=== PATIENT | female | born 1950 | race Two or more races ===

== ENCOUNTER 2024-11-29 02:54 | Emergency (ER) | payer MEDICARE, BC ==
[~2024-11-29] VITALS: Ht 167.6 cm; Wt 65.8 kg
[2024-11-29] MEDS ORDERED: ASPIRIN 325 MG TABLET ONE (03:10)
[2024-11-29] MEDS: ASPIRIN 325 MG TABLET PO ONE (03:16)
[2024-11-29] MEDS ORDERED: NITROGLYCERIN 0.4 MG/TAB BOTTLE ONE (03:17)
[2024-11-29] MEDS: NITROGLYCERIN 0.4 MG/TAB BOTTLE SL ONE (03:21)
[2024-11-29 03:30] LABS: BASOPHILS % (AUTO) 0.6 % (0.0-2.0); EOSINOPHILS # (AUTO) 0.1 K/uL (0.0-0.7); EOSINOPHILS % (AUTO) 2.8 % (0.0-6.0); HEMATOCRIT 39 % (33-45); HEMOGLOBIN 12.9 g/dL (11.5-14.8); LYMPHOCYTES # (AUTO) 2.1 K/uL (0.8-4.8); LYMPHOCYTES % (AUTO) 48.9 % (20.0-44.0); MEAN CORPUSCULAR HEMOGLOBIN 33 PG (26.0-33.0); MEAN CORPUSCULAR HGB CONC 33 g/dl (31.0-36.0); MEAN CORPUSCULAR VOLUME 99 fL (82-100); MONOCYTES # (AUTO) 0.4 K/uL (0.1-1.30); MONOCYTES % (AUTO) 9.5 % (2.0-12.0); NEUTROPHILS # (AUTO) 1.7 K/uL (1.8-8.9); NEUTROPHILS % (AUTO) 38.2 % (43.0-81.0); PLATELET COUNT (AUTO) 216 K/uL (150-450); RED BLOOD CELL COUNT(AUTO) 3.93 MIL/uL (4.0-5.2); RED CELL DISTRIBUTION WIDTH 13.8 % (11.5-15.0); WHITE BLOOD COUNT (AUTO) 4.3 K/uL (4.3-11.0)
[2024-11-29 03:41] LABS: CALCIUM, SERUM 9.4 mg/dL (8.5-10.1); CARBON DIOXIDE 29 mmol/L (21-32); CHLORIDE 106 mmol/L (98-107); CREATININE 0.8 mg/dL (0.6-1.3); GLUCOSE 99 mg/dL (74-106); SODIUM SERUM 139 mmol/L (136-145); UREA NITROGEN, BLOOD 20 mg/dL (7-18)
[2024-11-29 03:52] LABS: ALANINE AMINOTRANSFERASE 23 U/L (12-78); ALBUMIN 3.9 g/dL (3.4-5.0); ALKALINE PHOSPHATASE 55 U/L (46-116); ASPARTATE AMINOTRANSFERASE 19 U/L (15-37); BILIRUBIN,DIRECT 0.1 mg/dL (0.0-0.2); BILIRUBIN,TOTAL 0.3 mg/dL (0.2-1.0); INR 1.37 (0.91-1.10); NT-PRO BNP 35 pg/mL (0-125); PARTIAL THROMBOPLASTIN TIME 37.4 SEC (24.3-34.3); PROTHROMBIN TIME 14.2 SECS (9.2-11.1); TOTAL PROTEIN, SERUM 7.4 g/dL (6.4-8.2)
[2024-11-29 06:44] VITALS: BP 97/79; TEMP 98; O2SAT 97
== END 2024-11-29 06:45 | disposition home or self-care (01) ==
LOC: ER 03:06
DX: R07.89 Other chest pain (principal); I10 Essential (primary) hypertension; Z88.0 Allergy status to penicillin; Z88.2 Allergy status to sulfonamides
CPT/HCPCS: 36415; 71045-TC; 80048-TC; 80076-TC; 83880; 84484-TC; 85025-TC; 85730-TC